=== PATIENT | male | born 1960 | race Caucasian/White ===

== ENCOUNTER 2024-10-11 23:12 | Emergency (ER) | payer OTHER, SELFPAY ==
--- NOTE | ~2024-10-11 | XR_ITS ---
EXAM/PROCEDURE: XR chest 2V - 10/11/2024 23:59 CDT HISTORY: 64 years old Male with CHEST PAIN, PT STATES HIS RIGHT SIDE HURTS UPON INHALING TECHNIQUE: Two view(s) of the chest. COMPARISON: None available. FINDINGS: LUNGS/ PLEURA: Bibasilar opacities may represent atelectasis versus consolidation. No pleural effusio n or pneumothorax. HEART/ MEDIASTINUM: Heart appears normal in size. BONES: No acute osseous abnormality. OTHER: Visualized upper abdomen is unremarkable. IMPRESSION: Bibasilar opacities may represent atelectasis versus consolidation. Short interval follow-up chest ra diograph is recommended after appropriate clinical therapy to document stability versus resolution. Reviewed, dictated and finalized at location A. IMPRESSION: Bibasilar opacities may represent atelectasis versus consolidation. Short inter lupillo follow-up chest radiograph is recommended after appropriate clinical therap y to document stability versus resolution.
[2024-10-11 23:14] VITALS: BP 174/91; PULSE 62; RESP 16; TEMP 37; O2SAT 96
--- NOTE | 2024-10-11 23:14 | ECG_ITS ---
Test Date: 2024-10-11 23:22:43 Measurements Intervals [place] Rate: 54 P: 203 VA: 155 QRS: -10 QRSD: 104 T: -22 QT: 403 QTc: 382 Interpretive Statements SINUS BRADYCARDIA DELAYED PRECORDIAL R/S TRANSITION VOLTAGE CRITERIA FOR LVH BORDERLINE T WAVE ABNORMALITY- INFERIOR LEADS BASELINE ARTIFACT- I, II, III, AVR, AVL ,AVF, V1, V4-V6 BORDERLINE ECG No previous ECG available for comparison Electronically Signed On 10-12-2024 07:04:10 CDT by Diaz Sears D.O.
[2024-10-11 23:47] LABS: Hematocrit 39.5 % (42.0-52.0); Hemoglobin 13.5 g/dL (14.0-18.0); Immature Granulocyte Percent A 0.5 % (0-0.5); Lymphocytes Absolute Auto 1.15 K/mm3 (0.9-3.2); Mean Corpuscular HGB Conc 34.2 g/dl (32-36); Mean Corpuscular Hemoglobin 32.9 pg (26-34); Mean Corpuscular Volume 96.3 fl (80-100); Nucleated Red Blood Cells Absolute Auto 0.000 K/mm3 (0.0-0.012); Nucleated Red Blood Cells Perc 0.0 % (0.0-0.2); Platelet Count Result 230 k/mm3 (150-375); Red Blood Count 4.10 M/mm3 (4.6-6.20); White Blood Count 9.8 K/mm3 (4.5-10.0)
[2024-10-11 23:59] LABS: INR 1.1; Prothrombin Time 14.3 Seconds (11.1-14.7)
[2024-10-12] VITALS (19 sets, daily range): BP systolic 118–188; BP diastolic 77–94; PULSE 48–86; RESP 13–31; O2SAT 93–100
[2024-10-12] LABS: Partial Thromboplastin Time 30.2 Seconds (22.3-36.8)
[2024-10-12 00:03] LABS: Alanine Aminotransferase 35 U/L (6-50); Albumin Level 4.5 g/dL (3.5-5.1); Alkaline Phosphatase 94 U/L (38-126); Anion Gap 10 mmol/L (4-12); Aspartate Amino Transferase 33 U/L (17-59); Bilirubin,Total 0.9 mg/dL (0.2-1.3); Blood Urea Nitrogen 16 mg/dL (9-20); Calcium 9.0 mg/dL (8.4-10.2); Carbon Dioxide 21 mmol/L (22-30); Chloride 108 mmol/L (98-107); Estimated CRCL calculation 90 ml/min; Estimated Glomerular Filt Rate > 60; Glucose 131 mg/dL (65-110); Lipase 66 U/L (23-300); Potassium 4.0 mmol/L (3.4-5.0); Sodium 139 mmol/L (137-145); Total Protein 8.5 g/dL (6.3-8.2)
[2024-10-12 00:11] LABS: Troponin I 0.017 ng/mL (0.000-0.034)
--- NOTE | 2024-10-12 02:13 | ECG_ITS ---
Test Date: 2024-10-12 02:23:43 Measurements Intervals [place] Rate: 50 P: 0 FL: 0 QRS: -9 QRSD: 112 T: -21 QT: 416 QTc: 381 Interpretive Statements SINUS BRADYCARDIA INTRAVENTRICULAR CONDUCTION DELAY DELAYED PRECORDIAL R/S TRANSITION VOLTAGE CRITERIA FOR LVH BORDERLINE ST-T WAVE ABNORMALITY- INFERIOR LEADS BASELINE ARTIFACT- I, II, III, AVL, AVF, V6 ABNORMAL ECG Compared to ECG 10/11/2024 23:22:43 NO SIGNIFICANT CHANGE Electronically Signed On 10-12-2024 07:08:38 CDT by Diaz Sears D.O.
--- NOTE | 2024-10-12 02:51 | ED_ITS ---
HPI - Chest Pain General Chief Complaint: Chest Pain Stated Complaint: right chest/lung pain, hurts to deep breathe Time Seen by Provider: 10/12/24 02:40 History of Present Illness HPI narrative: 64-year-old otherwise healthy male with no chronic comorbidities are chronic medical conditions presenting to the emergency depart with right-sided chest pain, pleuritic chest discomfort and right-sided chest tightness. Symptoms going on for 2 days and worsening. He thinks he has some pleurisy or bronchitis/pneumonia. Endorses a cough that exacerbates his symptoms as well as pain worsening with movement and twisting of his torso and with deep breathing. No left-sided chest discomfort or chest pain. No history of cardiac disease to his knowledge. He was otherwise in his normal state of health. No fever, chills, tachycardia, syncope, abdominal pain, back pain, indigestion or left- sided chest pain or pressure. Was otherwise in his normal state of health. Has not been on any recent antibiotics or had any recent hospital visits otherwise. Related Data Allergies Allergy/AdvReac Type Severity Reaction Status Date / Time Penicillins AdvReac Mild Nausea and Verified 10/12/24 02:17 Vomiting Review of Systems 2 Review of Systems: As reviewed above in HPI Exam 2 Narrative: GENERAL: [Well-appearing, well-nourished, and in no acute distress.] HEAD: [Normocephalic, atraumatic.] EYES: [PERRLA and EOMI.] ENT: Nares clear, no rhinorrhea or epistaxis. Mucous membranes moist. NECK: Supple. CHEST: Diminished breath sounds in the right hemithorax compared to the left, no wheezing or profound expiratory phase but patient is appearing uncomfortable with the breathing and splinting his breaths favoring his left side. HEART: [Regular rate and rhythm]. No murmur heard. [Normal peripheral pulses.] ABDOMEN: [Soft, nondistended], [nontender], [No rigidity or guarding] EXTREMITIES: Normal range of motion. [No edema.] SKIN: Warm, dry, no rash. NEURO: [No focal deficits]. Alert and oriented [x3.] PSYCH: [Normal mood and affect.] Course Vital Signs Vital signs: Vital Signs Temperature 37.0 C 10/11/24 23:14 Pulse Rate 62 10/11/24 23:14 Respiratory Rate 16 10/11/24 23:14 Blood Pressure 174/91 H 10/11/24 23:14 Pulse Oximetry 96 10/11/24 23:14 Oxygen Delivery Room Air 10/11/24 23:14 Temperature 37.0 C 10/11/24 23:14 Pulse Rate 79 10/12/24 04:45 Respiratory Rate 29 H 10/12/24 04:45 Blood Pressure 118/91 H 10/12/24 04:03 Pulse Oximetry 95 10/12/24 04:45 Oxygen Delivery Room Air 10/12/24 02:27 MDM - Chest Pain MDM Narrative Medical decision making narrative: 64-year-old otherwise healthy male with no chronic comorbidities are chronic medical conditions presenting to the emergency depart with right-sided chest pain, pleuritic chest discomfort and right-sided chest tightness. Symptoms going on for 2 days and worsening. He thinks he has some pleurisy or bronchitis/pneumonia. Endorses a cough that exacerbates his symptoms as well as pain worsening with movement and twisting of his torso and with deep breathing. No left-sided chest discomfort or chest pain. No history of cardiac disease to his knowledge. He was otherwise in his normal state of health. No fever, chills, tachycardia, syncope, abdominal pain, back pain, indigestion or left- sided chest pain or pressure. Was otherwise in his normal state of health. Has not been on any recent antibiotics or had any recent hospital visits otherwise. Diminished breath sounds in the right hemithorax compared to the left, no wheezing or profound expiratory phase but patient is appearing uncomfortable with the breathing and splinting his breaths favoring his left side. Patient has normal vital signs aside from some sinus bradycardia, no significant blood pressure elevations, fever, tachypnea or hypoxemia. He is endorsing a nonproductive cough and does have a symmetric breath sounds raising suspicion for potential pneumonia, bronchitis, pleurisy. No risk factors for ACS or cardiopulmonary disease otherwise. Low suspicion PE but his symptoms are favoring only is right-sided. Laboratory studies obtained including CBC, CMP, troponin, delta troponin, EKG, EKG and chest x-ray. Given the asymmetric breath sounds he was started on albuterol, azithromycin and prednisone while workup is underway. Patient had improvement in clinical signs and symptoms after nebulization treatment and antibiotics. I did order CT scan but patient refused to lay down for this and wished to pursue this outpatient if still needed. He would like to be sent home with antibiotics. Given patient's clinical improvement currently I believe he can be safely discharged with this plan of mine. Workup so far shows no leukocytosis or significant anemia. Normal platelet count. Electrolytes are unremarkable. Normal creatinine, normal glucose and LFTs. Negative initial troponin, negative delta troponin. Normal lipase. EKG without any signs of ischemia. Patient will be sent home with albuterol, prednisone and azithromycin. Given strict return precautions which he verbalized. Medical Records Data Attestation: I reviewed the patient's medical records. Lab Data Attestation: I reviewed the patient's lab results. 10/11/24 23:36 10/11/24 23:36 Labs: Lab Results 10/11/24 10/12/24 Range/Units 23:36 02:21 WBC 9.8 (4.5-10.0) K/mm3 RBC 4.10 L (4.6-6.20) M/mm3 Hgb 13.5 L (14.0-18.0) g/dL Hct 39.5 L (42.0-52.0) % MCV 96.3 (80-100) fl MCH 32.9 (26-34) pg MCHC 34.2 (32-36) g/dl RDW 12.7 (11.5-14.5) % Plt Count 230 (150-375) k/mm3 MPV 9.2 (7.4-10.4) fl Immature Gran % (Auto) 0.5 (0-0.5) % Neut % (Auto) 77.1 H (45.5-73.1) % Lymph % (Auto) 11.8 L (18.3-44.2) % [place] % (Auto) 9.2 H (2.6-8.5) % Eos % (Auto) 1.2 (0-4.4) % Baso % (Auto) 0.2 (0.2-1.2) % Lymph # (Auto) 1.15 (0.9-3.2) K/mm3 [place] # (Auto) 0.9 H (0.1-0.6) K/mm3 Eos # (Auto) 0.1 (0-0.3) K/mm3 Baso # (Auto) 0.0 (0.0-0.1) K/mm3 Abs Immat Gran (auto) 0.05 H (0.00-0.031) K/mm3 Absolute Neuts (auto) 7.5 H (1.3-6.7) K/mm3 Absolute Nucleated RBC 0.000 (0.0-0.012) K/mm3 Nucleated RBC % 0.0 (0.0-0.2) % PT 14.3 (11.1-14.7) Seconds INR 1.1 APTT 30.2 (22.3-36.8) Seconds Sodium 139 (137-145) mmol/L Potassium 4.0 (3.4-5.0) mmol/L Chloride 108 H (98-107) mmol/L Carbon Dioxide 21 L (22-30) mmol/L Anion Gap 10 (4-12) mmol/L BUN 16 (9-20) mg/dL Creatinine 0.80 (0.7-1.3) mg/dL Estim Creat Clear Calc 90 ml/min Estimated GFR > 60 (59 - ) Glucose 131 H (65-110) mg/dL Calcium 9.0 (8.4-10.2) mg/dL Total Bilirubin 0.9 (0.2-1.3) mg/dL AST 33 (17-59) U/L ALT 35 (6-50) U/L Alkaline Phosphatase 94 (38-126) U/L Troponin I 0.017 0.013 D (0.000-0.034) ng/mL Total Protein 8.5 H (6.3-8.2) g/dL Albumin 4.5 (3.5-5.1) g/dL Lipase 66 (23-300) U/L Imaging Data Attestation: I personally reviewed and interpreted this imaging study as follows: My impression: Basilar atelectasis Discharge Plan Discharge Clinical Impression: Chest pain, Bronchitis, Pleurisy Patient Disposition: Home Condition: Stable Instructions: Antibiotic Form, Chest Pain (ED), Pleurisy (ED) Additional Instructions: Exam and findings consistent with bronchitis with potential pleurisy given the symptoms you are experiencing. We did recommend getting a CT scan but you elected not to get this at this time. Your cardiac enzymes are negative, no signs of any ongoing heart damage. We will treat this with a combination medications including steroids, antibiotics and albuterol inhaler. Follow-up with regular doctor and return with any emergent or recurrent concerns. Patient Language: [place] Prescriptions: New albuterol sulfate 2.5 mg /3 mL (0.083 %) solution for nebulization 2.5 mg inhalation Q4H PRN (Reason: shortness of breath or wheezing) Qty: 90 0RF azithromycin [Zithromax Z-Crispin] 250 mg tablet See Rx Instructions PO .COMPLEX Qty: 6 0RF Rx Instructions: For 250 mg dose pack: take 500 mg today (day 1), then 250 mg for 4 days (days 2-5) prednisone 50 mg tablet 50 mg PO DAILY 5 Days Qty: 5 0RF Follow-up/Referrals: PHYSICIAN NOT ON STAFF,NONSTAFF [Non-Staff] - Time of Disposition: 05:14
[2024-10-12 03:04] LABS: Troponin I 0.013 ng/mL (0.000-0.034)
[2024-10-12] MEDS: SODIUM CHLORIDE 0.9% IV 1,000 ML 999 ML IV CONT (03:11)
[2024-10-12] MEDS: ALBUTEROL SULFATE NEB 2.5 MG/3 ML INH 10 MG INHALATION (03:16)
--- NOTE | 2024-10-12 03:20 | PC.NURSE ---
Patient in room sitting on bedside chair, states It's more comfortable for my back. patient connected to monitor and call light within reach. Breathing tx ongoing.
[2024-10-12] MEDS: AZITHROMYCIN IV 500 MG in SODIUM CHLORIDE 0.9% IV 250 ML IVPB (03:28)
--- NOTE | 2024-10-12 03:57 | PC.NURSE ---
Patient states my abs are spasming. ERP notified, VORB to give 15mg toradol IVP. Order placed.
[2024-10-12] MEDS: KETOROLAC 15 MG/ML VIAL (*BKC) (04:00)
--- OUTSIDE RECORDS SUMMARY | 2024-10-12 04:00 | XMS_ITS | Continuity of Care Document ---
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 Role Phone Unavailable Unavailable Unavailable Advance Directives Directive Yes / No Effective Date File Name No Information Encounters Encounter Description Practice Location Reason(s) For Visit Diagnoses Date Provider Providers Copied on Encounter [facility], [address], [place], [place], [id number], [place] tel:[phone] [facility] [place] No Information [id number] No Information Family History Family Member Type Diagnosis Age At Onset No Information Payers Payer name Insurance type Covered alliance party ID Authoriza tion(s) No Information Social History Type Description Quantity Date Captured Comments Sex Male Smoking Status No Information Chief Complaint And Reason For Visit No Information Reason For Referral Reason For Referral No Information History Of Present Illness Encounter Date Complaint History Of Prese nt Illness No Information Functional Status Date Functional Assessmen t No Information Instructions Date Instruction Additional Infor mation No Information Assessments Type Assessment Date No Information Patient Care Teams Name Effective Dates (start - stop) Status Members No Information
--- NOTE | 2024-10-12 04:22 | PC.NURSE ---
Patient taken to CT via w/c at this time.
--- NOTE | 2024-10-12 04:41 | PC.NURSE ---
Patient comes back from CT and states I didn't want to do it, I just want to get my abx and go home and schedule it for a different day. This RN informed patient that the CT scan was to determine his condition, and plan of care and well as definitive treatment that the provider ordered for his workup. Patient verbalized understanding and stated I just want to schedule it for a different day if I can. This RN notified ERP .
== END 2024-10-12 05:29 | disposition home or self-care (01) ==
PROVIDERS: Emergency Provider Student in an Organized Health Care Education/Training Program
DX: J40 Bronchitis, not specified as acute or chronic (principal); R09.1 Pleurisy
CPT/HCPCS: 36415; 71046; 80053; 83690; 84484; 85025; 85610; 85730; 93005; 94640; 96365; 96375; 99285; J0456; J1885; J2919; J7030; J7050